=== PATIENT | male | born 1945 | race Caucasian/White ===

== ENCOUNTER 2018-05-05 16:43 | Emergency (ER) | payer OTHER ==
[~2018-05-05] VITALS: Ht 180.3 cm; Wt 105.0 kg
--- NOTE | 2018-05-05 16:54 | NUR ---
Pt BIB EMS for L sided numbness to face, arm, leg. Starting at 1610 and lasting ~20 mins. also states that pt had L sided facial droop at that time. States had sinus ZIMMERMAN yesterday. Pt denies sx at this time. VSS. no drifts, droops, changes to sensation. SR on EKG.
--- NOTE | 2018-05-05 17:31 | NUR ---
BREAK RN FOR PRIMARY RN JACKIE. LAB AT BEDSIDE. PT RESTING COMFORTABLY. VSS. NEURO AND CMS INTACT. CALL LIGHT IN REACH. FALL PRECAUTIONS IN PLACE.
--- NOTE | 2018-05-05 17:40 | NUR ---
PT IN CT
[2018-05-05 17:49] LABS: INTERNATIONAL NORMALIZED RATIO 0.97 (0.93-1.1); PROTHROMBIN TIME 10.3 Seconds (9.6-11.5)
[2018-05-05 17:54] LABS: BASOPHILS # (AUTO) 0.04 x10^3/uL (0-0.1); BASOPHILS % (AUTO) 1 % (0-1); EOSINOPHILS # (AUTO) 0.43 x10^3/uL (0-0.4); EOSINOPHILS % (AUTO) 5 % (1-7); LYMPHOCYTES # (AUTO) 2.42 x10^3/uL (1-3.4); LYMPHOCYTES % (AUTO) 29 % (22-44); MD NO; MEAN CORPUSCULAR HEMOGLOBIN 28.7 pg (27.5-34.5); MEAN CORPUSCULAR HGB CONC 32.6 g/dL (33.2-36.2); MEAN CORPUSCULAR VOLUME 88.2 fL (81-97); MEAN PLATELET VOLUME 9.7 fL (7.4-10.4); MONOCYTES # (AUTO) 1.06 x10^3/uL (0.2-0.8); MONOCYTES % (AUTO) 13 % (2-9); NEUTROPHILS # (AUTO) 4.46 x10^3/uL (1.8-6.8); NEUTROPHILS % (AUTO) 53 % (42-75); PLATELET COUNT 215 x10^3/uL (130-400); RED BLOOD COUNT 5.24 x10^6/uL (4.38-5.82)
--- NOTE | 2018-05-05 17:56 | NUR ---
REPORT AND CARE BACK TO PRIMARY RN JACKIE. PT BACK FROM CT. NAD NOTED. FAMILY AT BEDSIDE. CALL LIGHT IN REACH
--- NOTE | 2018-05-05 18:11 | NUR ---
Pt remains NAD. VSS. No neuro deficits.
[2018-05-05 18:38] LABS: ALANINE AMINOTRANSFERASE 73 U/L (12-78); ALBUMIN 3.4 g/dL (3.4-5.0); ANION GAP 10 mmol/L (5-15); CALCIUM 8.6 mg/dL (8.5-10.1); CHLORIDE 110 mmol/L (98-107)
[2018-05-05 18:42] LABS: ALKALINE PHOSPHATASE 62 U/L (45-117); BILIRUBIN,TOTAL 0.7 mg/dL (0.2-1.0); CREATININE 1.44 mg/dL (0.7-1.3); TOTAL PROTEIN 6.9 g/dL (6.4-8.2); TROPONIN I < 0.015 ng/mL (0.000-0.045)
[2018-05-05 19:14] VITALS: BP 133/92
== END 2018-05-05 19:21 | disposition home or self-care (01) ==
LOC: ED 17:44
DX: G45.9 Transient cerebral ischemic attack, unspecified (principal); H53.9 Unspecified visual disturbance; I10 Essential (primary) hypertension; I25.2 Old myocardial infarction; R20.0 Anesthesia of skin; R26.2 Difficulty in walking, not elsewhere classified
CPT/HCPCS: 36415; 70450; 80053; 83605; 84484; 85025; 85610; 93005; 99284